=== PATIENT | female | born 1955 | race Caucasian/White ===

== ENCOUNTER 2022-08-03 06:31 | Emergency (ER) | payer BC, OTHER ==
[~2022-08-03] VITALS: Ht 165.1 cm; Wt 55.3 kg
--- NOTE | 2022-08-03 06:44 | NUR ---
BIBS C/O SOB AND CONGESTION X 3 WEEKS. NO RELIEF WITH ALBUTEROL. O2 SATURATION 100% RA BREATHING EVEN AND UNLABORED. ASSISTED TO ER BED 7 AND PLACED ON MONITOR AND PULSE OX. WAS AT BEDSIDE FOR EVAL.
--- NOTE | 2022-08-03 06:58 | NUR ---
XRAY AT BEDSIDE
[2022-08-03] MEDS ORDERED: AMLO-212 PO (07:20)
[2022-08-03] MEDS ORDERED: GUAI120013 PO (07:20)
[2022-08-03] MEDS ORDERED: PSEU120T83 PO (07:20)
--- NOTE | 2022-08-03 07:31 | NUR ---
PT LEFT WITHOUT SIGNING DISCHARGE PAPERS. PT LEFT THE ER IN STABLE CONDITION WALKING.
[2022-08-03 08:14] VITALS: BP 169/74
== END 2022-08-03 08:14 | disposition home or self-care (01) ==
LOC: ER 06:38
DX: J32.9 Chronic sinusitis, unspecified (principal); J44.9 Chronic obstructive pulmonary disease, unspecified; Z79.899 Other long term (current) drug therapy

== ENCOUNTER 2025-10-05 14:18 | Inpatient (IN) | payer OTHER ==
[~2025-10-05] VITALS: Ht 162.6 cm; Wt 47.6 kg
[~2025-10-05 14:18] MED LIST: AMLO-212 PO; GUAI120013 PO; PSEU120T83 PO
[2025-10-05 15:14] LABS: PLATELET COUNT (AUTO) 236 K/uL (150-450); RED BLOOD CELL COUNT(AUTO) 4.29 MIL/uL (4.0-5.2); RED CELL DISTRIBUTION WIDTH 13.3 % (11.5-15.0); WHITE BLOOD COUNT (AUTO) 6.8 K/uL (4.3-11.0)
[2025-10-05 15:22] LABS: CALCIUM, SERUM 9.5 mg/dL (8.5-10.1); CREATININE 0.9 mg/dL (0.6-1.3); SODIUM SERUM 131 mmol/L (136-145); UREA NITROGEN, BLOOD 16 mg/dL (7-18)
[2025-10-05 15:28] LABS: ASPARTATE AMINOTRANSFERASE 20 U/L (15-37); TOTAL PROTEIN, SERUM 7.6 g/dL (6.4-8.2)
[2025-10-05 15:34] LABS: NT-PRO BNP 687.0 pg/mL (0-125)
[2025-10-05] MEDS ORDERED: LISINOPRIL (10MG) 10 MG TABLET ONE (15:40)
[2025-10-05] MEDS: LISINOPRIL (5MG) 5 MG TABLET PO ONE ×2 (15:54→17:30)
[2025-10-05] MEDS ORDERED: GUAIFENESIN/D-METHORPHAN HB 5 ML UDC ONE (15:57)
[2025-10-05] MEDS: GUAIFENESIN/D-METHORPHAN HB 5 ML UDC PO ONE (16:12)
[2025-10-05] MEDS ORDERED: LISI-768 PO (18:01)
[2025-10-05] MEDS ORDERED: ATEN100T PO (18:01)
[2025-10-05] MEDS ORDERED: CEFTRIAXONE 1GM BAG (ER ONLY) 50 ML IV ONE (18:58)
[2025-10-05] MEDS ORDERED: LORAZEPAM INJ 2 MG/ML VIAL ONE (18:59)
[2025-10-05] MEDS: CEFTRIAXONE 1GM BAG (ER ONLY) 50 ML IV ONE (19:09)
[2025-10-05] MEDS: LORAZEPAM INJ 2 MG/ML VIAL IV ONE (19:09)
[2025-10-05] MEDS ORDERED: ASPIRIN 81 MG TAB.CHEW ONE (19:21)
[2025-10-05] MEDS: ASPIRIN 81 MG TAB.CHEW PO ONE (19:33)
[2025-10-05] MEDS ORDERED: AZITHROMYCIN 500 MG VIAL ONE (19:50)
[2025-10-05] MEDS: AZITHROMYCIN 500 MG in IV D5W 250 ML IV ONE (19:55)
[2025-10-05 20:00] VITALS: BP 143/60; TEMP 98.2; O2SAT 97
[2025-10-05 20:49] VITALS: O2SAT 98
[2025-10-05] MEDS ORDERED: ZOLPIDEM TARTRATE 5 MG TABLET PO PRN (22:00)
[2025-10-05] MEDS ORDERED: Z GUARD REMEDY 4 OZ OINT TP PRN (22:00)
[2025-10-05] MEDS ORDERED: ONDANSETRON HCL/PF 4 MG/2 ML VIAL IVP PRN (22:00)
[2025-10-05] MEDS ORDERED: MAGNESIUM HYDROXIDE 30 ML UDC PO PRN (22:00)
[2025-10-05] MEDS ORDERED: ACETAMINOPHEN 325 MG TABLET PO PRN (22:00)
[2025-10-05] MEDS ORDERED: MAG HYDROX/AL HYDROX/SIMETH 30 ML UDC PO PRN (22:00)
[2025-10-05] MEDS: ATORVASTATIN 10 MG TABLET PO SCH (22:12)
[2025-10-06] VITALS: BP 119/50; TEMP 98.1; O2SAT 97
[2025-10-06] MEDS: ALBUTEROL FS 2.5 MG/3 ML VIAL.NEB NEB SCH (01:30)
[2025-10-06] MEDS: IPRATROPIUM NEB FS 0.5 MG/2.5 ML AMPUL.NEB NEB SCH (01:30)
[2025-10-06 04:00] VITALS: BP 126/55; TEMP 97.9; O2SAT 100
[2025-10-06 06:52] LABS: PLATELET COUNT (AUTO) 266 K/uL (150-450); RED BLOOD CELL COUNT(AUTO) 4.58 MIL/uL (4.0-5.2); RED CELL DISTRIBUTION WIDTH 13.7 % (11.5-15.0); WHITE BLOOD COUNT (AUTO) 3.5 K/uL (4.3-11.0)
[2025-10-06 07:14] LABS: CALCIUM, SERUM 9.6 mg/dL (8.5-10.1); CREATININE 0.9 mg/dL (0.6-1.3); PHOSPHORUS 3.7 mg/dL (2.5-4.9); SODIUM SERUM 134.0 mmol/L (136-145); UREA NITROGEN, BLOOD 15.0 mg/dL (7-18)
[2025-10-06] MEDS: LISINOPRIL (5MG) 5 MG TABLET PO SCH (08:10)
[2025-10-06] MEDS: ASPIRIN EC 81 MG TABLET.DR PO SCH (08:11)
[2025-10-06] MEDS: METOPROLOL TARTRATE 50 MG TABLET PO SCH (08:24)
[2025-10-06] MEDS: ENOXAPARIN SODIUM 40 MG/0.4 ML DISP.SYRIN SQ SCH (08:26)
[2025-10-06 08:38] LABS: LDL 148 mg/dL (0-99)
[2025-10-06] MEDS ORDERED: ATENOLOL 50 MG TABLET PO SCH (09:00)
[2025-10-06] MEDS ORDERED: IOHEXOL-350 100 ML VIAL IV ONE (09:05)
[2025-10-06] MEDS ORDERED: IV NS 0.9% 250 ML IV ONE (09:05)
[2025-10-06 09:14] VITALS: BP 143/58; TEMP 98.1; O2SAT 97
[2025-10-06] MEDS ORDERED: METOPROLOL TARTRATE INJ 5 MG/5 ML AMPUL ONE (09:49)
[2025-10-06] MEDS: NITROGLYCERIN 0.4 MG/TAB BOTTLE SL ONE (09:56)
[2025-10-06] MEDS ORDERED: CLONIDINE HCL 0.1 MG TABLET PO PRN (10:00)
[2025-10-06 12:00] VITALS: BP 130/80; TEMP 98.1; O2SAT 96
[2025-10-06] MEDS: MECLIZINE HCL 25 MG TABLET PO SCH (13:00)
[2025-10-06] MEDS ORDERED: MECL-182 PO (13:23)
[2025-10-06] MEDS ORDERED: ALPR0.25 PO (13:36)
[2025-10-06] MEDS ORDERED: CEFTRIAXONE 1 G in IV D5W 50 ML IV SCH (20:00)
[2025-10-06] MEDS ORDERED: AZITHROMYCIN 500 MG in IV D5W 250 ML IV SCH (21:00)
== END 2025-10-06 16:45 | disposition home or self-care (01) | DRG 305 ==
LOC: ER 14:18 → TELE 20:51 → MED 10-06 10:53
PROVIDERS: ADMIT Internal Medicine; ATTEND Internal Medicine
DX: I16.1 Hypertensive emergency (principal); F41.0 Panic disorder [episodic paroxysmal anxiety]; J43.9 Emphysema, unspecified; I10 Essential (primary) hypertension; R79.89 Other specified abnormal findings of blood chemistry; Z79.899 Other long term (current) drug therapy; Z79.82 Long term (current) use of aspirin; Z87.891 Personal history of nicotine dependence; R42 Dizziness and giddiness; J44.9 Chronic obstructive pulmonary disease, unspecified; F41.9 Anxiety disorder, unspecified
CPT/HCPCS: 36415; 70450-TC; 70487-TC; 71045-TC; 75574; 80048-TC; 80061-TC; 80076-TC; 83735-TC; 83880; 84100-TC; 84484-TC; 85025-TC; 87040-TC; G0378; J0456; J0696; J1650; J2060; J2919; J3490; J7050; J7060; Q9967